=== PATIENT | male | born 1970 | race Caucasian/White ===

== ENCOUNTER 2019-04-07 17:06 | Emergency (ER) | payer OTHER ==
[~2019-04-07] VITALS: Ht 177.8 cm; Wt 91.2 kg
[2019-04-07 17:19] VITALS: Ht 177.8 cm; Wt 91.2 kg
[2019-04-07 18:01] VITALS: BP 115/84
== END 2019-04-07 18:01 | disposition home or self-care (01) ==
LOC: ED 17:06
DX: S16.1XXA Strain of muscle, fascia and tendon at neck level, initial encounter (principal); S39.012A Strain of muscle, fascia and tendon of lower back, initial encounter; Z98.890 Other specified postprocedural states; V49.88XA Car occupant (driver) (passenger) injured in other specified transport accidents, initial encounter; Y93.I9 Activity, other involving external motion; Y92.413 State road as the place of occurrence of the external cause; Y99.8 Other external cause status

== ENCOUNTER 2020-07-25 12:17 | Emergency (ER) | payer OTHER ==
[~2020-07-25] VITALS: Ht 167.6 cm; Wt 99.8 kg
[2020-07-25 13:23] VITALS: BP 133/76; Ht 167.6 cm; Wt 99.8 kg
== END 2020-07-25 17:14 | disposition home or self-care (01) ==
LOC: ED 12:17
DX: S41.112A Laceration without foreign body of left upper arm, initial encounter (principal); W26.8XXA Contact with other sharp object(s), not elsewhere classified, initial encounter; Y93.89 Activity, other specified; Y92.89 Other specified places as the place of occurrence of the external cause; Y99.8 Other external cause status
CPT/HCPCS: 90715; J2001

== ENCOUNTER 2020-07-27 13:56 | Emergency (ER) | payer OTHER ==
[~2020-07-27] VITALS: Ht 175.3 cm; Wt 83.9 kg
[2020-07-27 14:19] VITALS: Ht 175.3 cm; Wt 83.9 kg
[2020-07-27 14:24] VITALS: BP 137/79
== END 2020-07-27 14:24 | disposition home or self-care (01) ==
LOC: ED 13:56
DX: S41.112D Laceration without foreign body of left upper arm, subsequent encounter (principal); Z98.890 Other specified postprocedural states; X58.XXXD Exposure to other specified factors, subsequent encounter

== ENCOUNTER 2020-08-08 19:15 | Emergency (ER) | payer OTHER ==
[~2020-08-08] VITALS: Ht 167.6 cm; Wt 86.2 kg
[2020-08-08 19:18] VITALS: BP 117/76; Ht 167.6 cm; Wt 86.2 kg
== END 2020-08-08 20:09 | disposition home or self-care (01) ==
LOC: ED 19:15
DX: S51.812D Laceration without foreign body of left forearm, subsequent encounter (principal); X58.XXXD Exposure to other specified factors, subsequent encounter